=== PATIENT | male | born 1950 ===

== ENCOUNTER 2022-11-27 06:00 | Outpatient (RCR) | payer OTHER, SELFPAY | END 2022-12-08 23:59 | disposition home or self-care (01) | LOC: GPT 06:00 | PROVIDERS: Visit Provider Orthopaedic Surgery | DX: Z47.1 Aftercare following joint replacement surgery (principal); Z96.651 Presence of right artificial knee joint | CPT/HCPCS: 97110; 97140; 97161; 97530 ==

== ENCOUNTER 2022-12-09 06:00 | Outpatient (RCR) | payer OTHER, SELFPAY | END 2023-01-01 23:59 | disposition home or self-care (01) | LOC: GPT 06:00 | PROVIDERS: Visit Provider Orthopaedic Surgery | DX: Z47.1 Aftercare following joint replacement surgery (principal); Z96.651 Presence of right artificial knee joint | CPT/HCPCS: 97110; 97140; 97530 ==